=== PATIENT | female | born 1960 | race Caucasian/White ===

== ENCOUNTER 2024-12-26 13:15 | Outpatient (AMB) | payer MEDICARE, SELFPAY ==
--- NOTE | 2024-12-26 13:18 | MHC.PC.OV ---
Vital Signs 12/26/24 13:26 12/26/24 13:54 Height 4 ft 11 in Weight 173 lb 4 oz BMI 35.0 BP 194/95 H 195/100 H Blood Pressure Location Rt brachial Lt brachial Position Sitting Sitting Respiration 16 Pulse 62 Pulse Source Pulse Oximeter Temp 97.8 F Temp Source Oral Pulse Oximetry (%) 97 Oxygen Delivery Method Room Air Intake Visit Reasons: Requesting PE/ Intake Note: patient here for new patient visit Sandfill Operator Required: No Is last menstrual period known: No Post menopausal: No Patient : No Allergies No Known Allergies Allergy (Verified 12/26/24 13:47) Medication List - Last Reconciled 12/26/24 by Millie Sarabia CNP albuterol sulfate 90 mcg/actuation 2 puffs inhalation Q4H PRN carvedilol 6.25 mg PO BID clopidogrel 75 mg PO DAILY losartan 25 mg PO BID rosuvastatin 5 mg PO DAILY Tobacco use date assessed: 12/26/24 Fall risk assessment: No Falls in past year Last assessed Fall Risk: 12/26/24 Dental Screening Dental Screen Date: 12/26/24 Did you have a dental visit in the last 12 months?: No Did you have a dental problem in the last 6 months where you did not have access to dental care?: No Was dental information given to patient?: Patient declined (she has dentures) HPI HPI Comments History of Present Illness Details 64-year-old female presents to establish care. Prior PCP? - [facility] Last office visit/CPE/labs - A year ago Acute issue(s) - Hypertension: Her resting BP is currently 195/100. She notes elevated BP readings at doctor's visits. She checks her blood pressure daily with average readings between 132/80 She is on carvedilol 6.25 mg twice daily and losartan 25 mg twice daily. She is followed by cardiology yearly. 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 - CAD: She is on rosuvastatin 5 mg daily. - COPD: She is on albuterol inhaler as needed. Past Medical History - Hypertension, CAD, aortic aneyrysm, COPD, cataract right eye, murmur, shingles Surgical History - Coronary artery stent, section Family History - Dad: Hypertension, cardiovascular disease, alcohol abuse, substance abuse, - Mom: Hypertension Social History - Former smoker, quit 7 years ago, h/o 1 and half ppd, smoked x 45 years . Does not vape. Does not drink. Smokes cannabis occasionally - Has been making healthy dietary choices in the last couple of weeks. She recently started walking and doing cardio regularly. Generally sleep well Health maintenance - Last eye exam was in 06/2024. She will sign a release for her PCP to ophthalmology record - Last dental visit was in 07/2024 - Last tetanus vaccine was 7 years ago. Record not available - Has not been vaccinated for the flu this season; declines vaccination - She is up-to-date on the pneumonia vaccines. Record not available - She had shingles 10 years and elected to not getting the vaccine - Last pap smear test was 43 years ago: Normal. She no longer performs pap smear test - Last mammogram was with [facility] a year ago: Normal; he will schedule a mammogram with them - She has never had a colonoscopy. She had Cologuard 4 years ago that was normal. Cologuard test ordered - She has never had a bone density scan. Dexa scan ordered - She had never had LDCT Specialists Nilda Jones and [facility] Medical History (Updated 12/26/24 @ 14:42 by Millie Sarabia CNP) Shingles Arthritis High blood pressure COPD (chronic obstructive pulmonary disease) Surgical History History of heart artery stent H/O: Family History Father Alcohol abuse Substance abuse High blood pressure Cardiovascular disease Mother High blood pressure Brother High blood pressure High cholesterol Cardiovascular disease Sister High blood pressure High cholesterol Diabetes Social History Housing: House Patient Tobacco Use Status: Never used Tobacco e-Cigarette/Vaping Use: Never Used Second Hand Smoke Exposure: No Substance Use Type: Marijuana service: No Current occupational status: retired Current occupational exposures/hazards: No Cognitive needs: No Hearing needs: No Vision needs: Yes Questionnaire PHQ-9 Over the last 2 weeks, how often have you been bothered by any of the following problems? 1. Little interest or pleasure in doing things: not at all 2. Feeling down, depressed, or hopeless: not at all 3. Trouble falling or staying asleep, or sleeping too much: not at all 4. Feeling tired or having little energy: not at all 5. Poor appetite or overeating: several days 6. Feeling bad about yourself - or that you are a failure or have let yourself or your family down: not at all 7. Trouble concentrating on things, such as reading the newspaper or watching television: not at all 8. Moving or speaking so slowly that other people could have noticed. Or the opposite - being so fidgety or restless that you have been moving around a lot more than usual: not at all 9. Thoughts that you would be better off or of hurting yourself in some way: not at all Total score: 1 Depression Screening Interpretation: Negative Depression Screening Done: Yes 52297 - PHQ-9 Billing: Yes Source: Developed by Drs. Rene Narayanan, Emily Herbert, John Adorno and colleagues, with an educational stephanie from [employer] Thrive Questionnaire Date Thrive assessed: 12/26/24 I am a: Patient What is your living situation today?: I have a steady place to live Within the past 12 months, did the food you bought not last and you didn't have the money to get more?: Never true Within the past 12 months, did you worry whether your food would run out before you got money to buy more?: Never true Do you have trouble paying for medicines?: No Do you have trouble getting transportation to medical appointments?: No Do you have trouble paying your heating and electricity bill?: No Do you have trouble taking care of your child, family member or friend?: No Do you have trouble with day-to-day activities such as bathing, preparing meals, shopping, managing finances, etc.?: No Are you currently unemployed and looking for a job?: No Are you interested in more education?: No Please select the resources that you would like help with: None Currently or been in a relationship where the following occur: No concerns reported THRIVE Score: 0 AUDIT C Alcohol Use Questionnaire (AUDIT-C) 1. How often do you have a drink containing alcohol?: Never Total Score: 0 HECTOR-7 AMB Questionnaire HECTOR-7 Date HECTOR - 7 assessed: 12/26/24 Feeling nervous, anxious, or on edge: 0 = Not at all Not being able to stop or control worryin = Not at all Worrying too much about different things: 0 = Not at all Trouble relaxin = Not at all Being so restless that it is hard to sit still: 0 = Not at all Becoming easily annoyed or irritable: 0 = Not at all Feeling afraid as if something awful might happen: 0 = Not at all Total HECTOR-7 score (0-4 normal; 5-9 mild; 10-14 moderate; 15-21 severe): 0 Source: Developed by Drs. Rene Narayanan, Emily Herbert, John Adorno and colleagues, with an educational stephanie from [employer] HECTOR-7 Assessment Billing HECTOR-7 Assessment Tool: HECTOR-7 Assessment 48685 Review of Systems Const Details: Denies chills, Denies fatigue, Denies fever(s), Denies headache(s) and Denies weakness HEENT Denies change in vision, Denies dizziness, Denies headache(s), Denies hearing loss, Denies nasal congestion, Denies sinus pain, Denies sinus pressure and Denies sore throat Card Denies chest pain, Denies lightheadedness, Denies dyspnea and Denies other (palpitations) Resp Denies cough, Denies dyspnea and Denies wheezing GI Denies abdominal pain, Denies melena, Denies hematochezia, Denies change in bowel habits, Denies dyspepsia and Denies nausea Denies hematuria and Denies dysuria Musc Denies abnormal gait, Denies myalgias, Denies arthralgias, Denies numbness and Denies tingling Skin/Breast Denies rash, Denies unusual bruising and Denies wounds Neuro Denies abnormal gait, Denies dizziness, Denies headache(s), Denies memory loss, Denies numbness, Denies Sensory deficit (Neuro), Denies tingling and Denies weakness Psych Denies anxiety, Denies depression and Denies memory loss Endo Denies cold intolerance, Denies fatigue, Denies heat intolerance, Denies polydipsia and Denies polyuria George/Lymph Denies easy bleeding and Denies easy bruising Aller/Immun Denies wheezing Physical exam (Primary Care) Vital Signs: Last Vital Signs Temp 97.8 F 12/26/24 13:26 Pulse 62 12/26/24 13:26 Resp 16 12/26/24 13:26 BP 194/95 H 12/26/24 13:26 Pulse Ox 97 12/26/24 13:26 Oxygen Delivery Method Room Air 12/26/24 13:26 BMI result Body Mass Index 35.0 Tobacco/Smoking Status: Tobacco use Status Tobacco use date assessed 12/26/24 12/26/24 13:39 Patient Tobacco Use Status Never used Tobacco 12/26/24 13:39 e-Cigarette/Vaping Use Never Used 12/26/24 13:39 PHQ-9: PHQ-9 Score PHQ-9: Total score 1 12/26/24 13:39 Depression Screening Interpretation: Negative Thrive Assessment: Date of Thrive Assessment Date Thrive assessed 12/26/24 12/26/24 13:21 Currently or been in a relationship where the following occur: No concerns reported Const Other: General: no acute distress, well developed, alert and awake Nutritional Appearance: well nourished Orientation/consciousness: patient oriented x3 HENMT Head: Yes normocephalic and Yes atraumatic Ears: hearing grossly normal bilaterally and TM's normal bilaterally General nose exam: Normal external nose present and Normal nares present Mouth: Normal oral and palatal mucosa present and moist mucous membranes Teeth and gingiva: Full denture, normal oral cavity Throat: Yes oropharynx normal Eyes Pupils: Equal, round and reactive pupils present and Pupil accommodation reflex normal EOM: EOMs intact bilaterally Neck Neck: Yes normal visual inspection, Yes no lymphadenopathy and Yes trachea midline Thyroid: Thyroid normal Carotids: no bruits Lymphatic: no lymphadenopathy noted Chest Chest palpation & inspection: normal inspection of the chest Resp Effort & Inspection: normal respiratory effort Auscultation: clear to auscultation bilaterally Cardio Rate: regular rate Rhythm: regular rhythm Heart sounds: S1 normal heart sound present, S2 normal heart sound present, no gallops, no murmurs and no rubs Bruits: no abdominal aortic bruits and no carotid bruits GI Palpation (GI): No Abdominal aortic bruit present, Soft to palpation, nontender, No hepatosplenomegaly present and No Rebound tenderness present Auscultation: normal bowel sounds General: Yes no CVA tenderness Back/Spine/Pelvis Back: no CVA tenderness Cervical Spine: cervical ROM normal and No Cervical spine tenderness Thoracic/Lumbar Spine: thoraco-lumbar ROM normal, No pain with thoraco-lumbar ROM, No thoracic spinal tenderness and No lumbar spinal tenderness Skin General: warm and dry. Normal skin color. Normal skin turgor Lesions: no lesions Rashes: no rashes Trauma: no lacerations or abrasions Wounds: no wounds Nails: normal Neuro General: patient oriented x3, gait normal and CN's II-XI intact bilaterally Cranial nerves: Yes Equal, round and reactive pupils present Cognition (Neuro): normal cognition Gait exam (Neuro): Normal gait present Motor exam (neuro): 5/5 motor strength present throughout Sensory Exam: No Sensory deficit (Neuro) Deep tendon reflexes (DTR's): Right patellar reflex intensity grade: 2+ and Left patellar reflex intensity grade: 2+ Extrem General: Yes normal to inspection, No edema and No calf tenderness Psych Appearance: grossly normal Affect: normal affect Attitude: cooperative Thought process: Normal thought process present Coding Level of Care Code New Pt Level 3 (90659) New Pt Prev Care >65yr (96898) Diagnoses Normal physical examination, routine Z00.00 High blood pressure I10 CAD (coronary artery disease) I25.10 Abdominal aortic aneurysm I71.40 Obesity (BMI 30-39.9) E66.9 COPD (chronic obstructive pulmonary disease) J44.9 History of smoking Z87.891 Osteoporosis screening Z13.820 Colon cancer screening Z12.11 Laboratory tests ordered as part of a complete physical exam (CPE) Z00.00 Additional Codes HECTOR-7 Assessment Billing - HECTOR-7 Assessment Tool: HECTOR-7 Assessment 50638 ([id number]) PHQ-9 - 51599 - PHQ-9 Billing: Yes ([id number]) Assessment & Plan Assessment & Plan (1) Normal physical examination, routine: Code(s): Z00.00 - Encounter for general adult medical examination without abnormal findings Category: Medical Plan: No significant functional limitation noted. Continue current treatment regimen. Perform lab work and follow-up for telehealth visit in 2-3 weeks. Return sooner with symptoms or concerns. Verbalized understanding and agreed with treatment plan. (2) High blood pressure: Code(s): I10 - Essential (primary) hypertension Category: Medical Plan: Resting blood pressure is 195/100, above goal of less than 130/80. Declines medication changes at this time to control her blood pressure and notes that her blood pressure is usually elevated at doctor's visits and controlled at home. She monitors her blood pressure daily and averages 132/80. She would continue to take her medications as prescribed and follow-up with cardiology for blood pressure management. Routine exercise and low-sodium diet encouraged. Follow-up as needed. Verbalized understanding and agreed with the plan. (3) CAD (coronary artery disease): Code(s): I25.10 - Atherosclerotic heart disease of [place] coronary artery without angina pectoris Category: Medical Plan: Continue current treatment regimen. Followed by cardiology. (4) Abdominal aortic aneurysm: Code(s): I71.40 - Abdominal aortic aneurysm, without rupture, unspecified Category: Medical Plan: Followed by cardiology. (5) Obesity (BMI 30-39.9): Code(s): E66.9 - Obesity, unspecified Category: Medical Plan: She currently weighs 170 lb, BMI is 35.0. She recently started making healthy dietary choices and exercising routinely. Declines referral to hot saw helper/dietitian or weight management clinic and notes she will continue to make lifestyle changes. Healthy diet and routine exercise encouraged. Follow-up as needed. Verbalized understanding and agreed with the plan. (6) COPD (chronic obstructive pulmonary disease): Code(s): J44.9 - Chronic obstructive pulmonary disease, unspecified Category: Medical Plan: Albuterol as prescribed. (7) History of smoking: Code(s): Z87.891 - Personal history of nicotine dependence Category: Social Hx Plan: She is a former smoker who quit 7 years ago. She has history of smoking a pack and a half daily and smoked for 45 years. She has never had LDCT. Referred to [facility] pulmonology for follow-up. (8) Osteoporosis screening: Code(s): Z13.820 - Encounter for screening for osteoporosis Category: Medical Plan: She has never had a bone scan for osteoporosis screening. DEXA scan ordered. (9) Colon cancer screening: Code(s): Z12.11 - Encounter for screening for malignant neoplasm of colon Category: Medical Plan: She has never had a colonoscopy. She had Cologuard 4 years ago that was normal. Cologuard test ordered. (10) Laboratory tests ordered as part of a complete physical exam (CPE): Code(s): Z00.00 - Encounter for general adult medical examination without abnormal findings Category: Medical Plan: Fasting labs ordered as part of a complete physical exam. Advised to fast for at least 10 hours before getting labs drawn. May drink water Verbalized understanding and agreed with treatment plan. Orders: Orders Complete Blood Count Auto Diff Today Z00.00 - Encounter for general adult medical examination without abnormal findings Lipid Panel Today Z00.00 - Encounter for general adult medical examination without abnormal findings TSH reflex Free T4 Today Z00.00 - Encounter for general adult medical examination without abnormal findings Vitamin D 25-OH Total Today Z00.00 - Encounter for general adult medical examination without abnormal findings XR DEXA axial skeleton Today M81.0 - Age-related osteoporosis without current pathological fracture Comprehensive [place]. Panel Fast Today Z00.00 - Encounter for general adult medical examination without abnormal findings Microalbumin, Random (w Creat) Today Z00.00 - Encounter for general adult medical examination without abnormal findings UA CC w/rflx Micro + Cult Today Z00.00 - Encounter for general adult medical examination without abnormal findings Referrals Lung Cancer Screening Referral Z87.891 - Personal history of nicotine dependence Cologuard Test Z12.11 - Encounter for screening for malignant neoplasm of colon, Z12.12 - Encounter for screening for malignant neoplasm of rectum
[2024-12-26 13:26] VITALS: BP 194/95; PULSE 62; RESP 16; TEMP 36.6; O2SAT 97; BMI 35.0
[2024-12-26 13:54] VITALS: BP 195/100
--- OUTSIDE RECORDS SUMMARY | 2024-12-26 16:11 | XMS_ITS | Encounter Summary ---
Author Organization [employer] Address [address] [place] [address] Care Team Providers Care Hat Copyist Name Role Phone Little Reid DO Primary Care Provider [phone] Encounter Details Date Type Department Care Team (Late st Contact Info) Description 08/20/2023 Orders Only [facility] [address] [place] [address] Little Reid DO [address] [place] [address] Social History Tobacco Use Types Packs/Day Years Used Date Smoking Tobacco: Former Cigarettes Alcohol Use Standard Drinks/Week Comments Never 0 (1 standard drink = 0.6 oz pur e alcohol) Housing Stability Answer Date Recorded What is your housing situation today? I have mary randle 07/30/[address] you li ve. Do you have problems with any of the following? None of the above 07/30/2023 Food Insecurity Answer Date Recorded Within the past 12 months, y ou worried that your food would run out before you got money to buy more: Never True 07/30/2023 Within the past 12 months,th e food you bought just didn't last and you didn't have enough money to get more: Never True Transportation Answer Date Recorded In the past 12 months, has l ack of transportation kept you from medical appts, meetings, work or from getting things needed for daily living? No 07/30/2023 Utilities Answer Date Recorded In the past 12 months, has t he electric, gas, oil or water company threatened to shut off services in your home? No 07/30/2023 Depression Answer Date Recorded Patient Health Questionnaire-2 Score 0 07/30/2023 Sex and Gender Information Value Date Recorded Sex Assigned at Male 09/03/2022 1:51 PM EST Legal Sex Female 8:38 PM EDT Gender Identity Male 09/03/2022 1:51 PM EST Sexual Orientation Choose not to disclose 2022 11:51 AM EST documented as of this encounter Plan of Treatment Not on file documented as of this encounter Procedures Procedure Name Priority Date/Time Associated Diagnosis Comments TRANSTHORACIC ECHO (TTE) COMPLETE Routine 04/16/2023 documented in this encounter Results * Transthoracic echo (TTE) complete (04/16/2023) Little Reid DO CV ECHO PROCEDURES Edited Resu lt - Final documented in this encounter Visit Diagnoses Not on filedocumented in this encounter Care Teams Hat Copyist Relationship Specialty Start Date End Date Little Reid DO [address] [place] [id number] PCP - General Family Medicine 07/29/23 documented as of this encounter
--- OUTSIDE RECORDS SUMMARY | 2024-12-26 16:11 | XMS_ITS | Clinical Summary ---
Author Organization [employer] Address [address] [facility] 7[address] [place] [address] Care Team Providers Care Manager Medicaid Name Role Phone Little Reid DO Primary Care Provider [phone] Allergies No known active allergies Medications Multiple Vitamins-Minerals (Multi For Her) tablet Orally Active losartan (Cozaar) 25 MG tablet Take 25 mg by mouth in the morning. 07/04/2022 Active aspirin 81 MG EC tablet Take 81 mg by mouth. 09/28/2017 Active clopidogrel (Plavix) 75 MG tablet Take 75 mg by mouth. 09/28/2017 Active rosuvastatin (Crestor) 5 MG tablet Take 5 mg by mouth. 08/05/2021 Active milk thistle 175 MG tablet Take 175 mg by mouth in the morning. Active carvedilol (Coreg) 6.25 MG tabletIndications :Primary hypertension TAKE 1 TABLET BY MOUTH TWICE DAILY 180 tablet 2 11/30/2023 Active albuterol 108 (90 Base) MCG/ACT inhalerIndication s:Chronic obstructive pulmonary disease, unspecified COPD type (CMS/HCC) INHALE 2 PUFFS INTO THE LUNGS EVERY 4 HOURS NEEDED 42.5 g 07/25/2024 Active Active Problems Problem Noted Date Diagnosed Date Heart aneurysm 09/01/2022 Prediabetes 09/01/2022 Overview (07/30/2023): Stable with Obesity (BMI 30.0-34.9) 09/01/2022 White coat syndrome with diagnosis of hypertensi on 09/01/2022 Assessment & Plan (07/30/2023 5:06 PM EST): Home BP well controlled. Continue current regimen History of myocardial infarction 09/01/2022 Assessment & Plan (07/30/2023 5:05 PM EST): H/o ME x 2 at 47 yo and 57 yo with three stents On ASA, Plavix, statin, BB, ARB Follows with Dr. Lopez at [facility] History of coronary artery stent placement 09/01 Chronic obstructive pulmonary disease 09/01/2022 Assessment & Plan (07/30/2023 5:07 PM EST): Gold category A with mild, stable symptoms and good functional capacity. Continue albuterol prn Carpal tunnel syndrome of left wrist 09/01/2022 Resolved Problems Problem Noted Date Diagnosed Date Resolved Date ST elevation myocardial infa rction involving left anterior descending (LAD) coronary artery 09/01/2022 07/30/2023 Immunizations Name Administration Dates Next Due INFLUENZA INJECTABLE QUADRIV ALANT CCIIV4 MDCK Multi-dose vial 08/21/2019 Influenza, IIV3, injectable 07/29/2021, 0 Moderna Covid-19 Vaccine 12+ 03/19/2022, 08/22/2021,12/19/2020,2020 Social History Tobacco Use Types Packs/Day Years Used Date Smoking Tobacco: Former Cigarettes Passive Smoke Exposure: Past Smokeless Tobacco: Never Tobacco Cessation:Counseling Given: Not Answered Alcohol Use Standard Drinks/Week Comments Never 0 (1 standard drink = 0.6 oz pur e alcohol) Alcohol Answer Date Recorded How often do you have a drink containing alcohol ? 0 12/13/2023 How many drinks containing a lcohol do you have on a typical day when you are drinking? 0 12/13/2023 How often do you have six or more drinks on one occasion? 0 12/13/2023 Housing Stability Answer Date Recorded What is [...] things needed for daily living? No 07/30/2023 Intimate Partner Violence Answer Date R ecorded Within the last year, have y ou been afraid of your partner or ex-partner? 2 12/13/2023 Within the last year, have y ou been humiliated or emotionally abused in other ways by your partner or ex-partner? 2 Within the last year, have y ou been kicked, hit, slapped, or otherwise physically hurt by your partner or ex-partner? 2 12/13/2023 Within the last year, have y ou been raped or forced to have any kind of sexual activity by your partner or ex-partner? 2 12/13/2023 Utilities Answer Date Recorded In the past 12 months, has t he [employer], gas, oil or water company threatened to shut off services in your home? No 07/30/2023 Depression Answer Date Recorded Patient Health Questionnaire-2 Score 0 07/30/2023 Sex and Gender Information Value Date Recorded Sex Assigned at Male 09/03/2022 1:51 PM EST Legal Sex Female 8:38 PM EDT Gender Identity Male 09/03/2022 1:51 PM EST Sexual Orientation Choose not to disclose 2022 11:51 AM EST Occupation Industry Job Start Date Job End Date [employer] [place] Not on file Not on sayra e Not on file Last Filed Vital Signs Vital Sign Reading Time Taken Comments Blood Pressure 156/88 12/13/2023 3:19 PM EDT Pulse 60 12/13/2023 3:19 PM EDT Temperature 36.4 ??C (97.6 ??F) 12/13/2023 3:19 PM ED T Respiratory Rate - - Oxygen Saturation 96% 12/13/2023 3:19 PM EDT Inhaled Oxygen Concentration - - Weight 75.4 kg (166 lb 3.2 oz) 12/13/2023 3:19 P M EDT Height 152.4 cm (5') 12/13/2023 3:19 PM EDT Body Mass Index 32.46 12/13/2023 3:19 PM EDT Plan of Treatment Health Maintenance Due Date Last Done Comments CT Colonography 1959 Colonoscopy 1959 Colorectal Cancer Screening 1959 FIT DNA/Cologuard 1959 FIT 1959 FOBT 1959 Sigmoidoscopy 1959 Alcohol/Substance Use Screening 1971 Hepatitis C Screening 1977 DTaP/Tdap/Td Vaccines (1 - Tdap) 1978 Pneumococcal Vaccine: 50+ Years (1 of 2 - PCV) 1978 Zoster Vaccines (1 of 2) 2009 Diabetes: Hemoglobin A1C 08/22/2019 08/22/2018 RSV Patients and Patients Aged 60 years or older (1 - Risk 60-74 years 1-dose series) 2019 Lipid Panel 03/26/2021 03/26/2016 COVID-19 Vaccine ( season) 2024 03/19/2022, 08/22/2021, 12/19/2020, Additional history exists Influenza Vaccine (#1) 2024 , 06/27/2020, 08/21/2019 Depression Screening 07/30/2024 07/30/2023, 07/30/20 23 SDOH Screening 07/30/2024 07/30/2023 Tobacco Screening 12/12/2024 12/13/2023 HIB Vaccines Aged Out No longer eligi ble based on patient's age to complete this topic HPV Vaccines Aged Out No longer eligi ble based on patient's age to complete this topic Hepatitis A Vaccines Aged Out No long er eligible based on patient's age to complete this topic Hepatitis B Vaccines Aged Out No long er eligible based on patient's age to complete this topic IPV Vaccines Aged Out No longer eligi ble based on patient's age to complete this topic Meningococcal Vaccine Aged Out No lorraine kacey eligible based on patient's age to complete this topic RSV under 20 months Aged Out No longe r eligible based on patient's age to complete this topic Rotavirus Vaccines Aged Out No longer eligible based on patient's age to complete this topic Procedures Procedure Name Priority Date/Time Associated Diagnosis Comments HEMOGLOBIN A1C Routine 08/22/2018 LIPID PANEL, STANDARD Routine 03/26/2016 from Last 3 Months or Most Recently Relevant to Health Maintenance Results * Hemoglobin A1c (08/22/2018) Hemoglobin A1C 5.8 4.0 - 6.0 % Blood Venous blood specimen / Unknown [facility] Provider LAB BLOOD ORDERABLES Lola l Result * (ABNORMAL) Lipid Panel, Standard (03/26/2016) Triglycerides 201(A) 40 - 160 mg/dL Cholesterol 168 0 - 200 mg/dL HDL Cholesterol 37 35 - 70 mg/dL LDL Cholesterol 75 mg/dL Blood Venous blood specimen / Unknown [facility] Provider LAB BLOOD ORDERABLES Lola l Result from Last 3 Months or Most Recently Relevant to Health Maintenance Insurance [facility] * Guarantor: Winifred Watkins Account Type Relation to Patient Date of Phone Billing Address Personal/Family Self [facility] * Guarantor: Winifred Watkins Account Type Relation to Patient Date of Phone Billing Address Personal/Family Self [facility] * Guarantor: Winifred Watkins Account Type Relation to Patient Date of Phone Billing Address Personal/Family Self [facility] Care Teams Manager Medicaid Relationship Specialty Start Date End Date Little Reid DO [address] [place] [address] PCP - General Family Medicine 07/29/23
--- OUTSIDE RECORDS SUMMARY | 2024-12-26 16:11 | XMS_ITS | Encounter Summary ---
Author Organization [employer] Address [address] [facility] [facility] [address] [place] [address] Care Team Providers Care Human Resources Supervisor Name Role Phone Little Reid Primary Care Provider [phone] Encounter Details Date Type Department Care Team (Late st Contact Info) Description 08/04/2023 Orders Only [place] [facility] [address] [place] [address] Provider, MD Sanjay Social History Tobacco Use Types Packs/Day Years Used Date Smoking Tobacco: Former Cigarettes Alcohol Use Standard Drinks/Week Comments Never 0 (1 standard drink = 0.6 oz pur e alcohol) Housing Stability Answer Date Recorded What is your housing situation today? I have m[place] randle 07/30/[address] you [...] Procedure Name Priority Date/Time Associated Diagnosis Comments MAMMOGRAPHY Routine 04/30/2023 documented in this encounter Results * Hm Mammography (04/30/2023) Anatomical Region Laterality Modality Other Historical Provider HEALTH MAINTENANCE Final Result documented in this encounter Visit Diagnoses Not on filedocumented in this encounter Care Teams Human Resources Supervisor Relationship Specialty Start Date End Date Little Reid DO [address] [place] [id number] PCP - General Family Medicine 07/29/23 documented as of this encounter
--- OUTSIDE RECORDS SUMMARY | 2024-12-26 16:11 | XMS_ITS | Encounter Summary ---
Author Organization [employer] Address [address] [facility] [address] [place] [address] Care Team Providers Care Grinder Set Up Operator Universal Name Role Phone Little Reid DO Primary Care Provider [phone] Encounter Details Date Type Department Care Team (Late st Contact Info) Description 12/31/2023 Orders Only [place] [facility] [address] [place] [address] Little Reid DO [address] [place] [address] Social History Tobacco Use Types Packs/Day Years Used Date Smoking Tobacco: Former Cigarettes Passive Smoke Exposure: Past Smokeless Tobacco: Never Alcohol Use Standard Drinks/Week Comments Never 0 [...] Industry Job Start Date Job End Date [facility] [employer] Not on file Not on sayra e Not on file documented as of this encounter Plan of Treatment Not on file documented as of this encounter Procedures Procedure Name Priority Date/Time Associated Diagnosis Comments DERMATOPATHOLOGY REPORT Routine 12/13/2023 3:54 PM EDT documented in this encounter Results * Dermatopathology Report (12/13/2023 3:54 PM EDT) Little Reid DO LAB BLOOD ORDERABLES Final Res ult documented in this encounter Visit Diagnoses Not on filedocumented in this encounter Care Teams Grinder Set Up Operator Universal Relationship Specialty Start Date End Date Little Reid DO [address] [place] [phone] PCP - General Family Medicine 07/29/23 documented as of this encounter
== END 2024-12-26 14:25 | disposition home or self-care (01) ==
LOC: HO.HMCFM 13:15
PROVIDERS: PCP Nurse Practitioner Family; Visit Provider Nurse Practitioner Family
DX: Z00.00 Encounter for general adult medical examination without abnormal findings (principal); I10 Essential (primary) hypertension; I71.40 Abdominal aortic aneurysm, without rupture, unspecified; J44.9 Chronic obstructive pulmonary disease, unspecified; I25.10 Atherosclerotic heart disease of native coronary artery without angina pectoris; E66.9 Obesity, unspecified; Z87.891 Personal history of nicotine dependence; Z13.820 Encounter for screening for osteoporosis; Z12.11 Encounter for screening for malignant neoplasm of colon

== ENCOUNTER → 2024-12-26 13:15 | Outpatient (BNVA) | payer MEDICARE, SELFPAY | PROVIDERS: PCP Nurse Practitioner Family; Visit Provider Nurse Practitioner Family | DX: Z00.00 Encounter for general adult medical examination without abnormal findings (principal); I10 Essential (primary) hypertension; I25.10 Atherosclerotic heart disease of native coronary artery without angina pectoris; J44.9 Chronic obstructive pulmonary disease, unspecified; I71.40 Abdominal aortic aneurysm, without rupture, unspecified; E66.9 Obesity, unspecified; Z87.891 Personal history of nicotine dependence; Z79.899 Other long term (current) drug therapy | CPT/HCPCS: 96127; 99202; 99387 ==

== ENCOUNTER 2025-01-08 10:33 | Outpatient (REF) | payer MEDICARE, SELFPAY ==
--- OUTSIDE RECORDS SUMMARY | 2025-01-08 12:26 | XMS_ITS | Encounter Summary ---
Author Organization [email or web address] Address [address] [facility] 7t [place] [address] Care Team Providers Care Program Director/Air Personality Name Role Phone Little Reid DO Primary Care Provider [phone] Encounter Details Date Type Department Care Team (Late st Contact Info) Description 08/20/2023 Orders Only [place] [facility] [address] [place] [address] Little Reid DO [address] [place] [address] Social History Tobacco Use Types Packs/Day Years [...] on filedocumented in this encounter Care Teams Program Director/Air Personality Relationship Specialty Start Date End Date Little Reid DO [address] [place] [id number] PCP - General Family Medicine 07/29/23 documented as of this encounter
--- OUTSIDE RECORDS SUMMARY | 2025-01-08 12:26 | XMS_ITS | Encounter Summary ---
Author Organization [employer] Address [address] [facility] [address] [place] [address] Care Team Providers Care Order Administrator Name Role Phone Little Reid Primary Care Provider [phone] Encounter Details Date Type Department Care Team (Late st Contact Info) Description 08/04/2023 Orders Only [place] [facility] [address] [place] [address] Provider, MD Sanjay Social History Tobacco Use [...] on filedocumented in this encounter Care Teams Order Administrator Relationship Specialty Start Date End Date Little Reid DO [address] [place] [id number] PCP - General Family Medicine 07/29/23 documented as of this encounter
--- OUTSIDE RECORDS SUMMARY | 2025-01-08 12:26 | XMS_ITS | Clinical Summary ---
Author Organization [employer] Address [address] [facility] [address]t [place] [address] Care Team Providers Care Orthopedically Impaired Teacher Name Role Phone Little Reid DO Primary Care Provider [phone] Allergies No known active allergies Medications Multiple [...] BB, ARB Follows with Dr. Lopez at [facility] History of coronary [...] the past 12 months, has t he [employer], gas, oil or water company threatened to [...] Industry Job Start Date Job End Date [facility] [employer] [place] Not on file Not on sayra e [...] % Blood Venous blood specimen / Unknown [facility] Provider LAB BLOOD ORDERABLES Lola l Result * (ABNORMAL) Lipid Panel, Standard (03/26/2016) Triglycerides 201(A) 40 - 160 mg/dL Cholesterol 168 0 - 200 mg/dL HDL Cholesterol 37 35 - 70 mg/dL LDL Cholesterol 75 mg/dL Blood Venous blood specimen / Unknown [facility] Provider LAB BLOOD ORDERABLES Lola l Result from Last 3 Months or Most Recently Relevant to Health Maintenance Insurance [facility] PPO * Guarantor: Winifred Watkins Account Type Relation to Patient Date of Phone Billing Address Personal/Family Self [facility] * Guarantor: Winifred Watkins Account Type Relation to Patient Date of Phone Billing Address Personal/Family Self [facility] * Guarantor: Winifred Watkins Account Type Relation to Patient Date of Phone Billing Address Personal/Family Self [facility] Care Teams Orthopedically Impaired Teacher Relationship Specialty Start Date End Date Little Reid DO [address] [place] [address] PCP - General Family Medicine 07/29/23
--- OUTSIDE RECORDS SUMMARY | 2025-01-08 12:26 | XMS_ITS | Encounter Summary ---
Author Organization [employer] Address [address] [facility] [address] 7[address] [place] [address] Care Team Providers Care Cable Coverer Name Role Phone Little Reid DO Primary Care Provider [phone] Encounter Details Date Type Department Care Team (Late st Contact Info) Description 12/31/2023 Orders Only [place] [facility] [address] [place] [address] Little Reid DO [address] [place] [address] Social History Tobacco Use Types Packs/Day Years [...] Industry Job Start Date Job End Date [facility] [employer] Not on file Not on sayra e [...] on filedocumented in this encounter Care Teams Cable Coverer Relationship Specialty Start Date End Date Little Reid DO [address] [place] [id number] PCP - General Family Medicine 07/29/23 documented as of this encounter
[2025-01-08 14:07] LABS: MANUAL DIFF FLAG NO
[2025-01-08 14:12] LABS: Basophils Percent Auto 0.5 % (0-2); Eosinophils Absolute Auto 0.1 X10*3/uL (0.0-0.4); Eosinophils Percent Auto 1.3 % (0-4); Hemoglobin 14.2 g/dl (12.0-16.0); Imm Gran Abs Auto 0.03 X10*3/uL (0.00-0.03); Imm Gran Pct Auto 0.4 % (0.0-0.4); Lymphocytes Absolute Auto 1.5 X10*3/uL (1.2-4.9); Lymphocytes Percent Auto 20.2 % (20-40); Mean Corpuscular Hemoglobin 26.7 pg (27.0-33.0); Mean Corpuscular Volume 80.8 fL (80.0-98.0); Mean Platelet Volume 10.8 fL (9.4-12.3); Monocytes Absolute Auto 0.5 X10*3/uL (0.1-1.2); Neutrophils Absolute Auto 5.3 x10*3/uL (2.0-8.3); Neutrophils Percent Auto 70.6 % (45-73); Platelet Count 257 X10*3/uL (160-400); Red Blood Count 5.32 X10*6/uL (4.20-5.50); Red Cell Distribution Width 14.9 % (11.0-16.0); White Blood Count 7.5 X10*3/uL (4.8-10.8)
[2025-01-08 14:26] LABS: Appearance Urine Clear; Color Urine Yellow; Glucose Urine UA Negative (Negative); Leukocyte Esterase Urine Moderate (2+) (Negative); Nitrite Urine Negative (Negative); PH 5.5 (5.0-9.0); UMIC TRIGGER UACC YES; Urine Blood Negative (Negative); Urine Ketones Trace mg/dL (Negative); Urine Protein Trace mg/dL (Neg-Trace)
[2025-01-08 14:47] LABS: Alanine Aminotransferase 23 U/L (0-31); Albumin Level 4.2 g/dL (3.5-5.0); Alkaline Phosphatase 65 U/L (39-117); Anion Gap 13 (12-20); Aspartate Amino Transferase 30 U/L (5-31); Bilirubin Total 0.5 mg/dL (0.0-1.0); Blood Urea Nitrogen 9 mg/dL (9-16); Calcium 9.1 mg/dL (8.4-10.2); Carbon Dioxide 25 mmol/L (22-29); Chloride 108 mmol/L (96-108); Cholesterol 138 mg/dL (<200); Estimated Glomerular Filt Rate > 60; Glucose Fasting 113 mg/dL (60-99); HDL Cholesterol 48 mg/dL (>40); LDL Cholesterol Calculated 51 mg/dL (<100); Sodium 142 mmol/L (135-145); TSH reflex Free T4 0.41 uIU/mL (0.32-4.0); Total Protein 6.7 g/dL (6.5-8.0); Triglycerides 196 mg/dL (<150); Vitamin D 25-OH Total 48.7 ng/mL (>30)
[2025-01-08 14:48] LABS: Creatinine Urine 256.74 mg/dL; Microalbum/Creatinine Ratio Ur 14.4 ug/mg cr (<30)
[2025-01-08 19:16] LABS: Bacteria Urine None Seen (None Seen); RBC Urine 0-2 /HPF (0-2); UACC Culture Trigger YES; WBC Urine 21-50 /HPF (0-5)
== END 2025-01-08 10:34 | disposition home or self-care (01) ==
LOC: HO.WFDLDS 10:33
PROVIDERS: Visit Provider Nurse Practitioner Family
DX: Z00.00 Encounter for general adult medical examination without abnormal findings (principal); R82.90 Unspecified abnormal findings in urine
CPT/HCPCS: 36415; 80053; 80061; 81001; 82043; 82306; 82570; 84443; 85025; 87086

== ENCOUNTER 2025-01-12 14:07 | Outpatient (AMB) | payer MEDICARE, SELFPAY ==
--- NOTE | 2025-01-12 14:04 | MHC.PC.OV ---
Intake Visit Reasons: Telehalth 2-3 wks labs Intake Note: patient here for telehealth follow up for lab review Web User Experience Strategist Required: No Is last menstrual period known: No Post menopausal: No Patient : No Allergies No Known Allergies Allergy (Verified 01/12/25 14:04) Tobacco use date assessed: 01/12/25 Fall risk assessment: No Falls in past year Last assessed Fall Risk: 01/12/25 Dental Screening Dental Screen Date: 01/12/25 Did you have a dental visit in the last 12 months?: No Did you have a dental problem in the last 6 months where you did not have access to dental care?: No Was dental information given to patient?: No (she has dentures) HPI HPI Comments History of Present Illness Details 64-year-old female presents for a telehealth visit for review of recent lab results. She admits to taking her medications as prescribed without adverse reactions. She notes that she checks her blood pressure regularly and average between 121-124/76-78. She reports white coat syndrome at doctor's visit due to anxiety related to a bad experience with a doctor. She offers no complaints and denies acute symptoms at this time. [facility] Medical History (Updated 01/12/25 @ 14:24 by Millie Sarabia CNP) Shingles Arthritis High blood pressure COPD (chronic obstructive pulmonary disease) Surgical History History of heart artery stent H/O: Family History Father Alcohol abuse Substance abuse High blood pressure Cardiovascular disease Mother High blood pressure Brother High blood pressure High cholesterol Cardiovascular disease Sister High blood pressure High cholesterol Diabetes Social History Housing: House Patient Tobacco Use Status: Never used Tobacco e-Cigarette/Vaping Use: Never Used Second Hand Smoke Exposure: No Substance Use Type: Marijuana Patient : No service: No Current occupational status: retired Current occupational exposures/hazards: No Cognitive needs: No Hearing needs: No Vision needs: Yes Questionnaire Thrive Questionnaire Date Thrive assessed: 12/20/24 I am a: Patient What is your living situation today?: I have a steady place to live Within the past 12 months, did the food you bought not last and you didn't have the money to get more?: Never true Within the past 12 months, did you worry whether your food would run out before you got money to buy more?: Never true Do you have trouble paying for medicines?: No Do you have trouble getting transportation to medical appointments?: No Do you have trouble paying your heating and electricity bill?: No Do you have trouble taking care of your child, family member or friend?: No Do you have trouble with day-to-day activities such as bathing, preparing meals, shopping, managing finances, etc.?: No Are you currently unemployed and looking for a job?: No Are you interested in more education?: No Please select the resources that you would like help with: None Currently or been in a relationship where the following occur: No concerns reported THRIVE Score: 0 AUDIT C Alcohol Use Questionnaire (AUDIT-C) 3. How often do you have six or more drinks on one occasion?: Never Total Score: 0 HECTOR-7 AMB Questionnaire HECTOR-7 Date HECTOR - 7 assessed: 12/26/24 Source: Developed by Drs. Rene Narayanan, Emily Herbert, John Adorno and colleagues, with an educational stephanie from [employer] Review of Systems Const Details: Denies chills, Denies fatigue, Denies fever(s), Denies headache(s) and Denies weakness Cardiac Denies chest pain, Denies claudication, Denies leg edema, Denies lightheadedness, Denies palpitations, Denies dyspnea, Denies dyspnea on exertion, Denies orthopnea and Denies other (Loss of consciousness) Resp Denies cough, Denies excessive phlegm production, Denies dyspnea, Denies dyspnea on exertion, Denies snoring and Denies wheezing Physical exam (Primary Care) Tobacco/Smoking Status: Tobacco use Status Tobacco use date assessed 01/12/25 01/12/25 14:05 Patient Tobacco Use Status Never used Tobacco 01/12/25 14:05 e-Cigarette/Vaping Use Never Used 01/12/25 14:05 Thrive Assessment: Date of Thrive Assessment Date Thrive assessed 12/20/24 01/12/25 14:05 Currently or been in a relationship where the following occur: No concerns reported Const Other: Patient is alert and oriented x3. Telehealth Telehealth Telehealth Platform: Telephone Location of provider rendering services: practice address Location of patient: address on file Patient Identification confirmed using: Name, : Yes Telehealth method: voice only Patient verbally consented to treatment: Yes Patient verbally consented to billing insurance company: Yes Patient informed of any privacy concerns related to visit: Yes Coding Level of Care Code Tele Est Pt Level 3 (62383) Diagnoses Elevated fasting glucose R73.01 Hypertriglyceridemia E78.1 High blood pressure I10 Time Spent (min) 15 Assessment & Plan Assessment & Plan (1) Elevated fasting glucose: Code(s): R73.01 - Impaired fasting glucose Category: Medical Plan: Recent fasting glucose is elevated, 113. Routine exercise and healthy diet encouraged. Will recheck fasting glucose and make changes as needed. Verbalized understanding and agreed with the plan. (2) Hypertriglyceridemia: Code(s): E78.1 - Pure hyperglyceridemia Category: Medical Plan: Recent triglyceride is elevated, 196. Advised to limit foods high in saturated fat and avoid foods high in trans fat. Routine exercise encouraged. Will increase rosuvastatin to 10 mg daily; advised to take as prescribed. Fast for 10-12 hours, may drink water only, and perform lipid panel blood work 2-3 days before next visit. Follow-up for hypertriglyceridemia and hypertension in 2 months. Verbalized understanding and agreed with the plan. (3) High blood pressure: Code(s): I10 - Essential (primary) hypertension Category: Medical Plan: She notes that she checks her blood pressure regularly and average between 121-124/76-78. She reports white coat syndrome at doctor's visit due to anxiety related to a bad experience with a doctor. Recommended that she follows up soon for hypertension. However, she notes that she would wait until she follows up with her lapping machine set up operator in a month. Continue current regimen. Routine exercise and low-sodium diet encouraged. Follow-up in 2 months or sooner with symptoms or concerns. Verbalized understanding and agreed with the plan. Orders: Orders Glucose Fasting Today R73.01 - Impaired fasting glucose Lipid Panel 2 Months E78.1 - Pure hyperglyceridemia Medications: New rosuvastatin 10 mg PO DAILY 90 days 90 tabs 1RF
--- OUTSIDE RECORDS SUMMARY | 2025-01-12 14:25 | XMS_ITS | Encounter Summary ---
Author Organization [employer] Address [address] [facility] [address] [place] [address] Care Team Providers Care Career Transition Specialist Name Role Phone Little Reid Primary Care Provider [phone] Encounter Details Date Type Department Care Team (Late st Contact Info) Description 08/04/2023 Orders Only [place] [facility] [address] [place] [address] Provider, MD Sanjay Social History Tobacco Use [...] on filedocumented in this encounter Care Teams Career Transition Specialist Relationship Specialty Start Date End Date Little Reid DO [address] [place] [id number] PCP - General Family Medicine 07/29/23 documented as of this encounter
--- OUTSIDE RECORDS SUMMARY | 2025-01-12 14:25 | XMS_ITS | Encounter Summary ---
Author Organization [employer] Address [address] [facility] 7t [place] [address] Care Team Providers Care Crown Perforator Operator Name Role Phone Little Reid DO Primary Care Provider [phone] Encounter Details Date Type Department Care Team (Late st Contact Info) Description 08/20/2023 Orders Only [place] [facility] [address] [place] [address] Little Reid DO [address] [place] [address] Social History Tobacco Use Types Packs/Day Years [...] on filedocumented in this encounter Care Teams Crown Perforator Operator Relationship Specialty Start Date End Date Little Reid DO [address] [place] [id number] PCP - General Family Medicine 07/29/23 documented as of this encounter
--- OUTSIDE RECORDS SUMMARY | 2025-01-12 14:25 | XMS_ITS | Clinical Summary ---
Author Organization [employer] Address [address] [facility] [address] [place] [address] Care Team Providers Care Centrifugal Machine Tender Name Role Phone Little Reid DO Primary Care Provider [phone] Allergies No known active allergies Medications Multiple [...] & Plan (07/30/2023 5:05 PM EST): H/o [place] x 2 at 47 yo and 57 yo with three stents On ASA, Plavix, statin, BB, ARB Follows with Dr. Lopez at [facility] History of coronary artery stent [...] the past 12 months, has t he [employer], gas, oil or water company threatened [...] Industry Job Start Date Job End Date [facility] [place] Not on file Not on sayra e [...] % Blood Venous blood specimen / Unknown [facility] Provider LAB BLOOD ORDERABLES Lola l Result * (ABNORMAL) Lipid Panel, Standard (03/26/2016) Triglycerides 201(A) 40 - 160 mg/dL Cholesterol 168 0 - 200 mg/dL HDL Cholesterol 37 35 - 70 mg/dL LDL Cholesterol 75 mg/dL Blood Venous blood specimen / Unknown [facility] Provider LAB BLOOD ORDERABLES Lola l Result from Last 3 Months or Most Recently Relevant to Health Maintenance Insurance [facility] [place] [facility] PPO * Guarantor: Winifred Watkins Account Type Relation to Patient Date of Phone Billing Address Personal/Family Self [facility] [place] * Guarantor: Winifred Watkins Account Type Relation to Patient Date of Phone Billing Address Personal/Family Self [facility] [place] * Guarantor: Winifred Watkins Account Type Relation to Patient Date of Phone Billing Address Personal/Family Self [facility] [place] Care Teams Centrifugal Machine Tender Relationship Specialty Start Date End Date Little Reid DO [address] [place] [address] PCP - General Family Medicine 07/29/23
--- OUTSIDE RECORDS SUMMARY | 2025-01-12 14:25 | XMS_ITS | Encounter Summary ---
Author Organization [employer] Address [address] [facility] [address] 7t [place] [address] Care Team Providers Care Chamber Magistrate Name Role Phone Little Reid DO Primary Care Provider [phone] Encounter Details Date Type Department Care Team (Late st Contact Info) Description 12/31/2023 Orders Only [facility] MED[facility] [address] [place] [address] Little Reid DO [address] [place] [address] Social History Tobacco Use Types Packs/Day Years [...] Industry Job Start Date Job End Date [facility] [employer] Not on file Not on sayra e [...] on filedocumented in this encounter Care Teams Chamber Magistrate Relationship Specialty Start Date End Date Little Reid DO [address] [place] [id number] PCP - General Family Medicine 07/29/23 documented as of this encounter
== END 2025-01-12 15:30 | disposition home or self-care (01) ==
LOC: HO.HMCFM 14:07
PROVIDERS: PCP Nurse Practitioner Family; Visit Provider Nurse Practitioner Family
DX: R73.01 Impaired fasting glucose (principal); E78.1 Pure hyperglyceridemia; I10 Essential (primary) hypertension

== ENCOUNTER → 2025-01-12 14:07 | Outpatient (BNVA) | payer MEDICARE, SELFPAY | PROVIDERS: PCP Nurse Practitioner Family; Visit Provider Nurse Practitioner Family | DX: R73.01 Impaired fasting glucose (principal); E78.1 Pure hyperglyceridemia; I10 Essential (primary) hypertension; Z79.899 Other long term (current) drug therapy | CPT/HCPCS: 98966 ==

== ENCOUNTER 2025-03-19 10:30 | Outpatient (REF) | payer MEDICARE, SELFPAY ==
--- OUTSIDE RECORDS SUMMARY | 2025-03-19 11:21 | XMS_ITS | Clinical Summary ---
Author Organization [employer] Address [address] [facility] [address] [place] [address] Care Team Providers Care Board Operator Name Role Phone Little Reid DO Primary Care Provider Allergies No known active allergies Medications Multiple [...] & Plan (07/30/2023 5:05 PM EST): H/o [place] x 2 at 47 yo and 57 yo with three stents On ASA, Plavix, statin, BB, ARB Follows with Dr. Lopez at [facility] History of [...] descending (LAD) coronary artery 09/01/2022 07/30/2023 Immunizations Immunization Administration Dates Next Due INFLUENZA INJECTABLE QUADRIV [...] the past 12 months, has t he [employer], gas, oil or water company threatened to [...] Industry Job Start Date Job End Date [facility] [employer] Not on file Not on sayra e Not on file Last Filed Vital Signs Vital Sign Reading Time Taken Comments Blood Pressure 156/88 12/13/2023 3:19 PM EDT Pulse 60 12/13/2023 3:19 PM EDT Temperature 36.4 C (97.6 F) 12/13/2023 3:19 PM EDT Respiratory Rate - - Oxygen Saturation 96% [...] 2024 03/19/2022, 08/22/2021, 12/19/2020, Additional history exists Depression Screening 07/30/2024 07/30/2023, 07/30/20 23 SDOH Screening 07/30/2024 07/30/2023 Tobacco Screening 12/12/2024 12/13/2023 Influenza Vaccine (#1) 2025 , 06/27/2020, 08/21/2019 HIB Vaccines Aged Out No longer eligi [...] patient's age to complete this topic Meningococcal B Vaccine Aged Out No l onger eligible based on patient's age to complete [...] % Blood Venous blood specimen / Unknown [facility] Provider MD LAB BLOOD ORDERABLES Lola l Result * (ABNORMAL) Lipid Panel, Standard (03/26/2016) Triglycerides 201(A) 40 - 160 mg/dL Cholesterol 168 0 - 200 mg/dL HDL Cholesterol 37 35 - 70 mg/dL LDL Cholesterol 75 mg/dL Blood Venous blood specimen / Unknown [facility] Provider LAB BLOOD ORDERABLES Lola l Result from Last 3 Months or Most Recently Relevant to Health Maintenance Insurance [facility] PPO * Guarantor: Winifred Watkins Account Type Relation to Patient Date of Phone Billing Address Personal/Family Self [facility] * Guarantor: Winifred Watkins Account Type Relation to Patient Date of Phone Billing Address Personal/Family Self [facility] * Guarantor: Winifred Watkins Account Type Relation to Patient Date of Phone Billing Address Personal/[place] [address] Care Teams Board Operator Relationship Specialty Start Date End Date Little Reid DO [address] [place] [address] PCP - General Family Medicine 07/29/23
[2025-03-19 14:36] LABS: Cholesterol 130 mg/dL (<200); HDL Cholesterol 42 mg/dL (>40); Triglycerides 229 mg/dL (<150)
[2025-03-19 14:39] LABS: Appearance Urine Clear; Glucose Urine UA Negative (Negative); PH 6.5 (5.0-9.0); Specific Gravity - Urine 1.020 (1.005-1.025); UMIC TRIGGER UACC YES
[2025-03-19 14:52] LABS: UACC Culture Trigger YES
== END 2025-03-19 10:31 | disposition home or self-care (01) ==
LOC: HO.WFDLDS 10:30
PROVIDERS: Visit Provider Nurse Practitioner Family
DX: Z00.00 Encounter for general adult medical examination without abnormal findings (principal); E78.1 Pure hyperglyceridemia; R73.01 Impaired fasting glucose
CPT/HCPCS: 36415; 80061; 81001; 82947; 87086

== ENCOUNTER 2025-03-23 10:35 | Outpatient (AMB) | payer MEDICARE, SELFPAY ==
--- NOTE | 2025-03-23 10:39 | A.OFFPC_ITS ---
Vital Signs 03/23/25 10:44 03/23/25 11:00 Height 4 ft 11 in Weight 165 lb BMI 33.3 BP 150/75 H 126/84 Blood Pressure Location Rt brachial Lt brachial Position Sitting Sitting Respiration 16 Pulse 60 Pulse Source Pulse Oximeter Temp 98.0 F Temp Source Oral Pulse Oximetry (%) 97 Oxygen Delivery Method Room Air Intake Visit Reasons: 2 mos HTN, hypertriglyceridemia Intake Note: patient here for 2 month follow up on HTN and Hypertriglyceridema Software Test Engineer Required: No Is last menstrual period known: No Post menopausal: No Patient : No Allergies No Known Allergies Allergy (Verified 03/23/25 11:17) Medication List - Last Reconciled 03/23/25 by Millie Sarabia CNP albuterol sulfate 90 mcg/actuation 2 puffs inhalation Q4H PRN carvedilol 6.25 mg PO BID clopidogrel 75 mg PO DAILY losartan 25 mg PO BID rosuvastatin 10 mg PO DAILY 90 days Tobacco use date assessed: 03/23/25 Fall risk assessment: No Falls in past year Last assessed Fall Risk: 03/23/25 Dental Screening Dental Screen Date: 03/23/25 Did you have a dental visit in the last 12 months?: No Did you have a dental problem in the last 6 months where you did not have access to dental care?: No Was dental information given to patient?: No HPI HPI Comments History of Present Illness Details 63-year-old female presents for hyperten modesto and review of recent lab results. She admits to taking her medications as prescribed without adverse reactions. She notes that she has been making healthy lifestyle changes. She offers no complaints and denies acute symptoms at this time. [facility] Medical History (Updated 03/23/25 @ 14:18 by Millie Sarabia CNP) Murmur Shingles Arthritis High blood pressure COPD (chronic obstructive pulmonary disease) Surgical History History of heart artery stent H/O: Family History Father Alcohol abuse Substance abuse High blood pressure Cardiovascular disease Mother High blood pressure Brother High blood pressure High cholesterol Cardiovascular disease Sister High blood pressure High cholesterol Diabetes Social History Housing: House Patient Tobacco Use Status: Never used Tobacco e-Cigarette/Vaping Use: Never Used Second Hand Smoke Exposure: No Substance Use Type: Marijuana service: No Current occupational status: retired Current occupational exposures/hazards: No Cognitive needs: No Hearing needs: No Vision needs: Yes Questionnaire Thrive Questionnaire Date Thrive assessed: 12/20/24 I am a: Patient What is your living situation today?: I have a steady place to live Within the past 12 months, did the food you bought not last and you didn't have the money to get more?: Never true Within the past 12 months, did you worry whether your food would run out before you got money to buy more?: Never true Do you have trouble paying for medicines?: No Do you have trouble getting transportation to medical appointments?: No Do you have trouble paying your heating and electricity bill?: No Do you have trouble taking care of your child, family member or friend?: No Do you have trouble with day-to-day activities such as bathing, preparing meals, shopping, managing finances, etc.?: No Are you currently unemployed and looking for a job?: No Are you interested in more education?: No Please select the resources that you would like help with: None Currently or been in a relationship where the following occur: No concerns reported THRIVE Score: 0 HECTOR-7 AMB Questionnaire HECTOR-7 Date HECTOR - 7 assessed: 12/26/24 Source: Developed by Drs. Rene Narayanan, Emily Herbert, John Adorno and colleagues, with an educational stephanie from [employer]. Review of Systems Const Details: Const Denies chills, Denies fatigue, Denies fever(s), Denies headache(s) and Denies weakness ENT Denies dizziness and Denies headache(s) Card Denies chest pain, Denies lightheadedness, Denies dyspnea and Denies other (Palpitations) Resp Denies cough, Denies dyspnea, Denies wheezing and Denies other ( shortness of breath) GI Denies abdominal pain, Denies melena, Denies hematochezia, Denies change in bowel habits, Denies dyspepsia and Denies nausea Denies hematuria and Denies dysuria Musc Denies abnormal gait, Denies myalgias, Denies arthralgias, Denies numbness and Denies tingling Skin/Breast Denies rash, Denies unusual bruising and Denies wounds Neuro Denies abnormal gait, Denies dizziness, Denies headache(s), Denies memory loss, Denies numbness, Denies Sensory deficit (Neuro), Denies tingling and Denies weakness Psych Denies anxiety, Denies depression, Denies memory loss Endo Denies cold intolerance, Denies fatigue, Denies heat intolerance, Denies polydipsia and Denies polyuria Aller/Immun Denies wheezing Physical exam (Primary Care) Vital Signs: Last Vital Signs Temp 98.0 F 03/23/25 10:44 Pulse 60 03/23/25 10:44 Resp 16 03/23/25 10:44 BP 150/75 H 03/23/25 10:44 Pulse Ox 97 03/23/25 10:44 Oxygen Delivery Method Room Air 03/23/25 10:44 BMI result Body Mass Index 33.3 Tobacco/Smoking Status: Tobacco use Status Tobacco use date assessed 03/23/25 03/23/25 10:48 Patient Tobacco Use Status Never used Tobacco 03/23/25 10:42 e-Cigarette/Vaping Use Never Used 03/23/25 10:42 Thrive Assessment: Date of Thrive Assessment Date Thrive assessed 12/20/24 03/23/25 10:42 Currently or been in a relationship where the following occur: No concerns reported Const Other: General: no acute distress and well developed Nutritional Appearance: well nourished Orientation/consciousness: patient oriented x3 HENMT Head: Yes normocephalic and Yes atraumatic Eyes General: appearance normal, both eyes and all related structures Pupils: Equal, round and reactive pupils present EOM: EOMs intact bilaterally Resp Effort & Inspection: normal respiratory effort Auscultation: clear to auscultation bilaterally Cardio Rate: regular rate Rhythm: regular rhythm Heart sounds: S1 normal heart sound present, S2 normal heart sound present, no gallops, + murmurs and no rubs GI Palpation (GI): No Abdominal aortic bruit present, Soft to palpation, nontender, No hepatosplenomegaly present and No Rebound tenderness present Auscultation: normal bowel sounds General: Yes no CVA tenderness Back/Spine/Pelvis Back: no CVA tenderness Cervical Spine: cervical ROM normal and No Cervical spine tenderness Thoracic/Lumbar Spine: thoraco-lumbar ROM normal, No pain with thoraco-lumbar ROM, No thoracic spinal tenderness and No lumbar spinal tenderness Extrem General: Yes normal to inspection, No edema and No calf tenderness Skin General: warm and dry. Normal skin color. Normal skin turgor Neuro General: patient oriented x3, gait normal and no focal neuro deficit Cranial nerves: Yes Equal, round and reactive pupils present Cognition (Neuro): normal cognition Gait exam (Neuro): Normal gait present Sensory Exam: No Sensory deficit (Neuro) Psych Appearance: grossly normal Affect: normal affect Attitude: cooperative Thought process: Normal thought process present Results AMB Hemoglobin A1c AMB Hemoglobin A1c 5.8 % Last Edit by Magnolia Renteria MA on 03/23/25 12:13 Results Reviewed Results Reviewed: Laboratory Last Values Hgb A1c (Clinic) 5.8 % (4.0-6.0) 03/23/25 11:27 Coding Level of Care Code Est Pt Level 4 (20006) Diagnoses High blood pressure I10 Hypertriglyceridemia E78.1 Prediabetes R73.03 Assessment & Plan Assessment & Plan (1) High blood pressure: Code(s): I10 - Essential (primary) hypertension Category: Medical Plan: Resting blood pressure is 126/84, slightly above goal of less than 130/80. Continue current treatment regimen. Low-sodium diet and routine exercise encouraged. Follow-up in 3 months or sooner with symptoms or concerns. Verbalized understanding and agreed with the plan. (2) Hypertriglyceridemia: Code(s): E78.1 - Pure hyperglyceridemia Category: Medical Plan: Recent triglyceride level is elevated, 229, previous level was 196. Gemfibrozil 600 mg twice daily ordered; advised to take as prescribed. Instructed on the risks, benefits, and potential adverse reactions of the medication. Advised to limit foods high in saturated fat and avoid foods high in trans fat. Routine exercise encouraged. Will recheck lipid panel levels in 6 weeks. Verbalized understanding and agreed with the plan. (3) Prediabetes: Code(s): R73.03 - Prediabetes Category: Medical Plan: Recent fasting glucose is 112, previous level was 113. A1c today is 5.8%. Routine exercise and healthy diet, including low carbs encouraged. Will monitor A1c in the next 6-12 months. Verbalized understanding and agreed with the plan. Plan Recent fasting glucose is elevated, 112, previous level was 113. Orders: Orders AMB Hemoglobin A1c Today Z13.9 - Encounter for screening, unspecified Lipid Panel 6 Weeks I10 - Essential (primary) hypertension Medications: New gemfibrozil 600 mg PO BID 60 tabs 3RF 30 days
[2025-03-23 10:44] VITALS: BP 150/75; PULSE 60; RESP 16; TEMP 36.7; O2SAT 97; BMI 33.3
[2025-03-23 11:00] VITALS: BP 126/84
--- OUTSIDE RECORDS SUMMARY | 2025-03-23 11:10 | XMS_ITS | Clinical Summary ---
Author Organization [employer] Address [address] [facility] [address]t [place] [address] Care Team Providers Care Graining Machine Operator Name Role Phone Little Reid DO Primary Care Provider [phone] Allergies No known active allergies Medications Multiple [...] & Plan (07/30/2023 5:05 PM EST): H/o [place] x 2 at 47 yo and 57 yo with three stents On ASA, Plavix, statin, BB, ARB Follows with Dr. Lopez at [facility] [place] History of coronary artery stent [...] the past 12 months, has t he [employer], gas, oil or water company threatened to [...] Industry Job Start Date Job End Date [employer] Not on file Not on [...] % Blood Venous blood specimen / Unknown [facility] Provider MD LAB BLOOD ORDERABLES Lola l Result * (ABNORMAL) Lipid Panel, Standard (03/26/2016) Triglycerides 201(A) 40 - 160 mg/dL Cholesterol 168 0 - 200 mg/dL HDL Cholesterol 37 35 - 70 mg/dL LDL Cholesterol 75 mg/dL Blood Venous blood specimen / Unknown [facility] Provider LAB BLOOD ORDERABLES Lola l Result from Last 3 Months or Most Recently Relevant to Health Maintenance Insurance [facility] [place] [facility] PPO * Guarantor: Winifred Watkins Account Type Relation to Patient Date of Phone Billing Address Personal/Family Self [facility] [place] * Guarantor: Winifred Watkins Account Type Relation to Patient Date of Phone Billing Address Personal/Family Self [facility] [place] * Guarantor: Winifred Watkins Account Type Relation to Patient Date of Phone Billing Address Personal/Family [place] [address] Care Teams Graining Machine Operator Relationship Specialty Start Date End Date Little Reid DO [address] [place] [address] PCP - General Family Medicine 07/29/23
== END 2025-03-23 12:15 | disposition home or self-care (01) ==
LOC: HO.HMCFM 10:36
PROVIDERS: PCP Nurse Practitioner Family; Visit Provider Nurse Practitioner Family
DX: I10 Essential (primary) hypertension (principal); E78.1 Pure hyperglyceridemia; R73.03 Prediabetes; Z13.9 Encounter for screening, unspecified

== ENCOUNTER → 2025-03-23 10:35 | Outpatient (BNVA) | payer MEDICARE, SELFPAY | PROVIDERS: PCP Nurse Practitioner Family; Visit Provider Nurse Practitioner Family | DX: I10 Essential (primary) hypertension (principal); E78.1 Pure hyperglyceridemia; R73.03 Prediabetes | CPT/HCPCS: 83036; 99212 ==

== ENCOUNTER 2025-05-04 13:22 | Outpatient (REF) | payer MEDICARE, SELFPAY ==
--- OUTSIDE RECORDS SUMMARY | 2025-05-04 13:25 | XMS_ITS | Clinical Summary ---
Author Organization [employer] Address [address] [facility] [address] [place] [address] Care Team Providers Care Insulation Hoseman Name Role Phone Little Reid DO Primary Care Provider [phone] Allergies No known active allergies Medications Multiple [...] & Plan (07/30/2023 5:05 PM EST): H/o ID x 2 at 47 yo and 57 yo with three stents On ASA, Plavix, statin, BB, ARB Follows with [facility]. Lopez at [facility] History of coronary artery stent [...] the past 12 months, has t he [employer], gas, oil or water company threatened to [...] Industry Job Start Date Job End Date [facility] [employer] Not on file Not on [...] % Blood Venous blood specimen / Unknown [facility] Provider MD LAB BLOOD ORDERABLES Lola l Result * (ABNORMAL) Lipid Panel, Standard (03/26/2016) Triglycerides 201(A) 40 - 160 mg/dL Cholesterol 168 0 - 200 mg/dL HDL Cholesterol 37 35 - 70 mg/dL LDL Cholesterol 75 mg/dL Blood Venous blood specimen / Unknown [facility] Provider LAB BLOOD ORDERABLES Lola l Result from Last 3 Months or Most Recently Relevant to Health Maintenance Insurance [facility] [place] [facility] PPO * Guarantor: Winifred Watkins Account Type Relation to Patient Date of Phone Billing Address Personal/Family Self [facility] [place] * Guarantor: Winifred Watkins Account Type Relation to Patient Date of Phone Billing Address Personal/Family Self [facility] [place] * Guarantor: Winifred Watkins Account Type Relation to Patient Date of Phone Billing Address Personal/Family [place] [address] Care Teams Insulation Hoseman Relationship Specialty Start Date End Date Little Reid DO [address] [place] [address] PCP - General Family Medicine 07/29/23
[2025-05-04 16:26] LABS: Cholesterol 151 mg/dL (<200); HDL Cholesterol 49 mg/dL (>40); Triglycerides 245 mg/dL (<150)
== END 2025-05-04 13:23 | disposition home or self-care (01) ==
LOC: HO.WFDLDS 13:22
PROVIDERS: Visit Provider Nurse Practitioner Family
DX: I10 Essential (primary) hypertension (principal)
CPT/HCPCS: 36415; 80061

== ENCOUNTER 2025-06-26 13:10 | Outpatient (AMB) | payer MEDICARE, SELFPAY ==
--- NOTE | 2025-06-26 13:11 | A.OFFPC_ITS ---
Vital Signs 06/26/25 13:15 06/26/25 13:43 Height 4 ft 11 in Weight 165 lb 4 oz BMI 33.4 BP 176/83 H 164/80 H Blood Pressure Location Rt brachial Lt brachial Position Sitting Sitting Respiration 16 Pulse 71 Pulse Source Pulse Oximeter Temp 97.8 F Temp Source Oral Pulse Oximetry (%) 98 Oxygen Delivery Method Room Air Intake Visit Reasons: 3 mos HTN Intake Note: patient here for 3 month follow up on HTN Professional Services Manager Required: No Is last menstrual period known: No Post menopausal: No Patient : No Allergies No Known Allergies Allergy (Verified 06/26/25 13:37) Medication List - Last Reconciled 06/26/25 by Millie Sarabia CNP albuterol sulfate 90 mcg/actuation 2 puffs inhalation Q4H PRN aspirin (Adult Low Dose Aspirin) 81 mg PO DAILY carvedilol 6.25 mg PO BID clopidogrel 75 mg PO DAILY losartan 25 mg PO BID rosuvastatin 10 mg PO DAILY 90 days Tobacco use date assessed: 06/26/25 Fall risk assessment: No Falls in past year Last assessed Fall Risk: 06/26/25 Dental Screening Dental Screen Date: 06/26/25 Did you have a dental visit in the last 12 months?: No Did you have a dental problem in the last 6 months where you did not have access to dental care?: No Was dental information given to patient?: No (pt has dentures) HPI HPI Comments History of Present Illness Details 64-year-old female presents for hyperten [place] and hypertriglyceridemia follow-up She admits to taking her medications as prescribed without adverse reactions. She took gemfibrozil for one month and stopped taking it due to adverse reactions for nausea and lethargy; her symptoms completely resolved after she stopped the medication. She does not want to start medication treatment at this time and want to start being consistent with diet and exercise. She notes that she has been making healthy lifestyle changes. She notes that she has has white-coat syndrome and that her home blood pressure average between 122-126/76-78. She offers no complaints and denies acute symptoms at this time. [facility] Medical History (Updated 03/23/25 @ 14:18 by Millie Sarabia CNP) Murmur Shingles Arthritis High blood pressure COPD (chronic obstructive pulmonary disease) Surgical History History of heart artery stent H/O: Family History Father Alcohol abuse Substance abuse High blood pressure Cardiovascular disease Mother High blood pressure Brother High blood pressure High cholesterol Cardiovascular disease Sister High blood pressure High cholesterol Diabetes Social History Housing: House Patient Tobacco Use Status: Never used Tobacco e-Cigarette/Vaping Use: Never Used Second Hand Smoke Exposure: No Substance Use Type: Marijuana service: No Current occupational status: retired Current occupational exposures/hazards: No Cognitive needs: No Hearing needs: No Vision needs: Yes Questionnaire Thrive Questionnaire Date Thrive assessed: 12/20/24 I am a: Patient What is your living situation today?: I have a steady place to live Within the past 12 months, did the food you bought not last and you didn't have the money to get more?: Never true Within the past 12 months, did you worry whether your food would run out before you got money to buy more?: Never true Do you have trouble paying for medicines?: No Do you have trouble getting transportation to medical appointments?: No Do you have trouble paying your heating and electricity bill?: No Do you have trouble taking care of your child, family member or friend?: No Do you have trouble with day-to-day activities such as bathing, preparing meals, shopping, managing finances, etc.?: No Are you currently unemployed and looking for a job?: No Are you interested in more education?: No Please select the resources that you would like help with: None Currently or been in a relationship where the following occur: No concerns reported THRIVE Score: 0 HECTOR-7 AMB Questionnaire HECTOR-7 Date HECTOR - 7 assessed: 12/26/24 Source: Developed by Drs. Rene Narayanan, Emily Herbert, John Adorno and colleagues, with an educational stephanie from [employer]. Review of Systems Const Details: Const Denies chills, Denies fatigue, Denies fever(s), Denies headache(s) and Denies weakness ENT Denies dizziness and Denies headache(s) Card Denies chest pain, Denies lightheadedness, Denies dyspnea and Denies other (Palpitations) Resp Denies cough, Denies dyspnea, Denies wheezing and Denies other ( shortness of breath) GI Denies abdominal pain, Denies melena, Denies hematochezia, Denies change in bowel habits, Denies dyspepsia and Denies nausea Denies hematuria and Denies dysuria Musc Denies abnormal gait, Denies myalgias, Denies arthralgias, Denies numbness and Denies tingling Skin/Breast Denies rash, Denies unusual bruising and Denies wounds Neuro Denies abnormal gait, Denies dizziness, Denies headache(s), Denies memory loss, Denies numbness, Denies Sensory deficit (Neuro), Denies tingling and Denies weakness Psych Denies anxiety, Denies depression, Denies memory loss Endo Denies cold intolerance, Denies fatigue, Denies heat intolerance, Denies polydipsia and Denies polyuria Aller/Immun Denies wheezing Physical exam (Primary Care) Vital Signs: Last Vital Signs Temp 97.8 F 06/26/25 13:15 Pulse 71 06/26/25 13:15 Resp 16 06/26/25 13:15 BP 176/83 H 06/26/25 13:15 Pulse Ox 98 06/26/25 13:15 Oxygen Delivery Method Room Air 06/26/25 13:15 BMI result Body Mass Index 33.4 Tobacco/Smoking Status: Tobacco use Status Tobacco use date assessed 06/26/25 06/26/25 13:17 Patient Tobacco Use Status Never used Tobacco 06/26/25 13:17 e-Cigarette/Vaping Use Never Used 06/26/25 13:17 Thrive Assessment: Date of Thrive Assessment Date Thrive assessed 12/20/24 06/26/25 13:17 Currently or been in a relationship where the following occur: No concerns reported Const Other: General: no acute distress and well developed Nutritional Appearance: well nourished Orientation/consciousness: patient oriented x3 HENMT Head: Yes normocephalic and Yes atraumatic Eyes General: appearance normal, both eyes and all related structures Pupils: Equal, round and reactive pupils present EOM: EOMs intact bilaterally Resp Effort & Inspection: normal respiratory effort Auscultation: clear to auscultation bilaterally Cardio Rate: regular rate Rhythm: regular rhythm Heart sounds: S1 normal heart sound present, S2 normal heart sound present, no gallops, no murmurs and no rubs GI Palpation (GI): No Abdominal aortic bruit present, Soft to palpation, nontender, No hepatosplenomegaly present and No Rebound tenderness present Auscultation: normal bowel sounds General: Yes no CVA tenderness Back/Spine/Pelvis Back: no CVA tenderness Cervical Spine: cervical ROM normal and No Cervical spine tenderness Thoracic/Lumbar Spine: thoraco-lumbar ROM normal, No pain with thoraco-lumbar ROM, No thoracic spinal tenderness and No lumbar spinal tenderness Extrem General: Yes normal to inspection, No edema and No calf tenderness Skin General: warm and dry. Normal skin color. Normal skin turgor Neuro General: patient oriented x3, gait normal and no focal neuro deficit Cranial nerves: Yes Equal, round and reactive pupils present Cognition (Neuro): normal cognition Gait exam (Neuro): Normal gait present Sensory Exam: No Sensory deficit (Neuro) Psych Appearance: grossly normal Affect: normal affect Attitude: cooperative Thought process: Normal thought process present Coding Level of Care Code Est Pt Level 3 (65391) Diagnoses High blood pressure I10 Hypertriglyceridemia E78.1 Assessment & Plan Assessment & Plan (1) High blood pressure: Code(s): I10 - Essential (primary) hypertension Category: Medical Plan: Resting blood pressure is 164/80, above goal of less than 130/80. She notes that she has has white-coat syndrome and that her home blood pressure average between 122-126/76-78. Declines medication changes at this time and notes she will continue to monitor her blood pressure. Continue current treatment regimen. Reports blood pressure consistently above 130/80. Follow-up in 2 months or sooner with symptoms or concerns. Verbalized understanding and agreed with the plan. (2) Hypertriglyceridemia: Code(s): E78.1 - Pure hyperglyceridemia Category: Medical Plan: Recent triglycerides level is 245, previous level was 229. She experienced adverse reaction to gemfibrozil. Declines medication treatment at this time. She wants to start been consistent with diet and exercise. Advised to limit foods high in saturated fat and avoid foods high in trans fat. Routine exercise encouraged. Fast for 10-12 hours, may drink water, and performed lipid panel blood work a few days before next visit. Follow-up in 2 months. Return sooner with symptoms or concerns. Verbalized understanding and agreed with the plan. Orders: Orders Lipid Panel 2 Months E78.1 - Pure hyperglyceridemia
[2025-06-26 13:15] VITALS: BP 176/83; PULSE 71; RESP 16; TEMP 36.6; O2SAT 98; BMI 33.4
[2025-06-26 13:43] VITALS: BP 164/80
--- OUTSIDE RECORDS SUMMARY | 2025-06-26 16:00 | XMS_ITS | Encounter Summary ---
Author Organization [employer] Address [address] [place] [address] Care Team Providers Care Model And Pattern Supervisor Name Role Phone Little Reid DO Primary Care Provider [phone] Encounter Details Date Type Department Care Team (Late st Contact Info) Description 08/04/2023 Orders Only [facility] MEDICAL [address] [place] [address] ProviderSanjay MD Social History Tobacco Use Types Packs/Day Years Used Date Smoking Tobacco: Former Cigarettes Alcohol Use Standard Drinks/Week Comments Never 0 (1 standard drink = 0.6 oz pur e alcohol) Housing Stability Answer Date Recorded What is your housing situation today? I have mary jer 07/30/[address] you li [...] on filedocumented in this encounter Care Teams Model And Pattern Supervisor Relationship Specialty Start Date End Date Little Reid DO [address] [place] [id number] PCP - General Family Medicine 07/29/23 documented as of this encounter
--- OUTSIDE RECORDS SUMMARY | 2025-06-26 16:00 | XMS_ITS | Encounter Summary ---
Author Organization [employer] Address [address] [place] [address] Care Team Providers Care Fertilizer Mixer Name Role Phone Little Reid DO Primary Care Provider [phone] Encounter Details Date Type Department Care Team (Late st Contact Info) Description 12/31/2023 Orders Only [facility][1] MEDICAL [address] [place] [address] Little Reid DO [address] [place] [address] Social History Tobacco Use Types Packs/Day Years [...] Industry Job Start Date Job End Date [employer] Not on file Not on sayra [...] on filedocumented in this encounter Care Teams Fertilizer Mixer Relationship Specialty Start Date End Date Little Reid DO [address] [place] [id number] PCP - General Family Medicine 07/29/23 documented as of this encounter
--- OUTSIDE RECORDS SUMMARY | 2025-06-26 16:00 | XMS_ITS | Encounter Summary ---
Author Organization [employer] Address [address] [facility] [address] [place] [address] Care Team Providers Care Swimmer Name Role Phone Little Reid DO Primary Care Provider [phone] Encounter Details Date Type Department Care Team (Late st Contact Info) Description 08/20/2023 Orders Only [facility] [address] [place] [address] Little Reid DO [address] [place] [address] Social History Tobacco Use Types Packs/Day Years [...] on filedocumented in this encounter Care Teams Swimmer Relationship Specialty Start Date End Date Little Reid DO [address] [place] [id number] PCP - General Family Medicine 07/29/23 documented as of this encounter
--- OUTSIDE RECORDS SUMMARY | 2025-06-26 16:00 | XMS_ITS | Clinical Summary ---
Author Organization [employer] Address [address] [facility] [address] [place] [address] Care Team Providers Care Mandrel Press Hand Name Role Phone Little Reid DO Primary Care Provider [phone] Allergies No known active allergies Medications Multiple [...] obstructive pulmonary disease, unspecified COPD type (CMS/HCC) (HCC) INHALE 2 PUFFS INTO THE LUNGS EVERY [...] & Plan (07/30/2023 5:05 PM EST): H/o MS x 2 at 47 yo and 57 yo with three stents On ASA, Plavix, statin, BB, ARB Follows with Dr. Lopez at [facility] History of coronary artery stent [...] the past 12 months, has t he [employer], gas, oil or water company threatened to [...] Industry Job Start Date Job End Date [employer] Not on file Not on [...] 1-dose series) 2019 Lipid Panel 03/26/2021 03/26/2016 Depression Screening 07/30/2024 07/30/2023, 07/30/20 23 SDOH Screening 07/30/2024 07/30/2023 Tobacco Screening 12/12/2024 12/13/2023 COVID-19 Vaccine ( season) 2025 03/19/2022, 08/22/2021, 12/19/2020, Additional history exists Influenza Vaccine (#1) 2025 , 06/27/2020, 08/21/2019 [...] % Blood Venous blood specimen / Unknown [facility] Provider MD LAB BLOOD ORDERABLES Lola l Result * (ABNORMAL) Lipid Panel, Standard (03/26/2016) Triglycerides 201(A) 40 - 160 mg/dL Cholesterol 168 0 - 200 mg/dL HDL Cholesterol 37 35 - 70 mg/dL LDL Cholesterol 75 mg/dL Blood Venous blood specimen / Unknown [facility] Provider LAB BLOOD ORDERABLES Lola l Result from Last 3 Months or Most Recently Relevant to Health Maintenance Insurance [place], [place] [facility] PPO * Guarantor: Winifred Watkins Account Type Relation to Patient Date of Phone Billing Address Personal/Family Self [facility] [place] * Guarantor: Winifred Watkins Account Type Relation to Patient Date of Phone Billing Address Personal/Family Self [facility] [place] Care Teams Mandrel Press Hand Relationship Specialty Start Date End Date Little Reid DO [address] [place] [address] PCP - General Family Medicine 07/29/23
== END 2025-06-26 13:58 | disposition home or self-care (01) ==
LOC: HO.HMCFM 13:11
PROVIDERS: PCP Nurse Practitioner Family; Visit Provider Nurse Practitioner Family
DX: I10 Essential (primary) hypertension (principal); E78.1 Pure hyperglyceridemia

== ENCOUNTER → 2025-06-26 13:10 | Outpatient (BNVA) | payer MEDICARE, SELFPAY | PROVIDERS: PCP Nurse Practitioner Family; Visit Provider Nurse Practitioner Family | DX: I10 Essential (primary) hypertension (principal); E78.1 Pure hyperglyceridemia; Z79.899 Other long term (current) drug therapy | CPT/HCPCS: 99212 ==

== ENCOUNTER 2025-08-20 08:35 | Outpatient (REF) | payer MEDICARE, SELFPAY ==
[2025-08-20 11:30] LABS: MANUAL DIFF FLAG NO
[2025-08-20 11:50] LABS: Hematocrit 43.4 % (37.0-47.0); Hemoglobin 14.0 g/dl (12.0-16.0); Imm Gran Abs Auto 0.03 X10*3/uL (0.00-0.03); Imm Gran Pct Auto 0.3 % (0.0-0.4); Lymphocytes Absolute Auto 1.6 X10*3/uL (1.2-4.9); Mean Corpuscular HGB Conc 32.3 g/dl (31.0-35.0); Mean Corpuscular Hemoglobin 26.1 pg (27.0-33.0); Mean Corpuscular Volume 80.8 fL (80.0-98.0); NRBC Abs Auto 0.000 X10*3/uL (0.0-0.012); NRBC Pct Auto 0.0 /100WBC (0.0-0.2); Platelet Count 271 X10*3/uL (160-400); Red Blood Count 5.37 X10*6/uL (4.20-5.50); White Blood Count 8.7 X10*3/uL (4.8-10.8)
[2025-08-20 12:19] LABS: Anion Gap 9 (12-20); Blood Urea Nitrogen 17 mg/dL (9-16); Calcium 9.7 mg/dL (8.4-10.2); Carbon Dioxide 28 mmol/L (22-29); Chloride 107 mmol/L (96-108); Cholesterol 132 mg/dL (<200); Estimated Glomerular Filt Rate > 60; HDL Cholesterol 48 mg/dL (>40); Potassium 4.4 mmol/L (3.3-5.1); Sodium 140 mmol/L (135-145); Triglycerides 153 mg/dL (<150)
== END 2025-08-20 08:36 | disposition home or self-care (01) ==
LOC: HO.WFDLDS 08:35
PROVIDERS: PCP Nurse Practitioner Family; Visit Provider Nurse Practitioner Family
DX: Z01.818 Encounter for other preprocedural examination (principal); E78.1 Pure hyperglyceridemia
CPT/HCPCS: 36415; 80048; 80061; 85025; 93005; 99212

== ENCOUNTER 2025-08-20 08:35 | Outpatient (AMB) | payer MEDICARE, SELFPAY ==
--- NOTE | 2025-08-20 08:37 | A.OFFPC_ITS ---
Vital Signs 08/20/25 08:41 08/20/25 09:06 Height 4 ft 11 in Weight 165 lb 8 oz BMI 33.4 BP 169/75 H 160/80 H Blood Pressure Location Rt brachial Rt brachial Position Sitting Sitting Respiration 16 Pulse 68 Pulse Source Pulse Oximeter Temp 97.6 F Temp Source Oral Pulse Oximetry (%) 97 Oxygen Delivery Method Room Air Intake Visit Reasons: Pre-Op cataract surgery /08/27 Intake Note: patient here for pre-op cataract surgery Dental Treatment Coordinator Required: No Is last menstrual period known: No Post menopausal: No Patient : No Allergies No Known Allergies Allergy (Verified 08/20/25 08:47) Medication List - Last Reconciled 08/20/25 by Mlilie Sarabia CNP albuterol sulfate 90 mcg/actuation 2 puffs inhalation Q4H PRN aspirin (Adult Low Dose Aspirin) 81 mg PO DAILY carvedilol 6.25 mg PO BID clopidogrel 75 mg PO DAILY losartan 25 mg PO BID rosuvastatin 10 mg PO DAILY 90 days Tobacco use date assessed: 08/20/25 Fall risk assessment: No Falls in past year Last assessed Fall Risk: 08/20/25 Dental Screening Dental Screen Date: 08/20/25 Did you have a dental visit in the last 12 months?: No Did you have a dental problem in the last 6 months where you did not have access to dental care?: No Was dental information given to patient?: Patient has dentist HPI HPI Comments History of Present Illness Details 64-year-old female presents for preop ex am for cataract surgery. She notes that she is scheduled to have surgery of the right eye on 08/27/2025. She admits to taking her medications as prescribed without adverse reactions. She notes that she has been making healthy lifestyle choices. She monitors her blood pressure at home twice daily and usually in 120s/70s. She reports history of white coat syndrome. She offers no complaints and denies acute symptoms at this time. [facility] Medical History (Updated 08/20/25 @ 08:44 by Millie Sarabia CNP) Murmur Shingles Arthritis High blood pressure COPD (chronic obstructive pulmonary disease) Surgical History History of heart artery stent H/O: Family History Father Alcohol abuse Substance abuse High blood pressure Cardiovascular disease Mother High blood pressure Brother High blood pressure High cholesterol Cardiovascular disease Sister High blood pressure High cholesterol Diabetes Social History Housing: House Patient Tobacco Use Status: Never used Tobacco e-Cigarette/Vaping Use: Never Used Second Hand Smoke Exposure: No Substance Use Type: Marijuana service: No Current occupational status: retired Current occupational exposures/hazards: No Cognitive needs: No Hearing needs: No Vision needs: Yes Questionnaire Thrive Questionnaire Date Thrive assessed: 12/20/24 I am a: Patient What is your living situation today?: I have a steady place to live Within the past 12 months, did the food you bought not last and you didn't have the money to get more?: Never true Within the past 12 months, did you worry whether your food would run out before you got money to buy more?: Never true Do you have trouble paying for medicines?: No Do you have trouble getting transportation to medical appointments?: No Do you have trouble paying your heating and electricity bill?: No Do you have trouble taking care of your child, family member or friend?: No Do you have trouble with day-to-day activities such as bathing, preparing meals, shopping, managing finances, etc.?: No Are you currently unemployed and looking for a job?: No Are you interested in more education?: No Please select the resources that you would like help with: None Currently or been in a relationship where the following occur: No concerns reported THRIVE Score: 0 HECTOR-7 AMB Questionnaire HECTOR-7 Date HECTOR - 7 assessed: 12/26/24 Source: Developed by Drs. Rene Narayanan, Emily Herbert, John Adorno and colleagues, with an educational stephanie from [employer]. Review of Systems Const Details: Const Denies chills, Denies fatigue, Denies fever(s), Denies headache(s) and Denies weakness ENT Denies dizziness and Denies headache(s) Card Denies chest pain, Denies lightheadedness, Denies dyspnea and Denies other (Palpitations) Resp Denies cough, Denies dyspnea, Denies wheezing and Denies other ( shortness of breath) GI Denies abdominal pain, Denies melena, Denies hematochezia, Denies change in bowel habits, Denies dyspepsia and Denies nausea Denies hematuria and Denies dysuria Musc Denies abnormal gait, Denies myalgias, Denies arthralgias, Denies numbness and Denies tingling Skin/Breast Denies rash, Denies unusual bruising and Denies wounds Neuro Denies abnormal gait, Denies dizziness, Denies headache(s), Denies memory loss, Denies numbness, Denies Sensory deficit (Neuro), Denies tingling and Denies weakness Psych Denies anxiety, Denies depression, Denies memory loss Endo Denies cold intolerance, Denies fatigue, Denies heat intolerance, Denies polydipsia and Denies polyuria Aller/Immun Denies wheezing Physical exam (Primary Care) Vital Signs: Last Vital Signs Temp 97.6 F 08/20/25 08:41 Pulse 68 08/20/25 08:41 Resp 16 08/20/25 08:41 BP 160/80 H 08/20/25 09:06 Pulse Ox 97 08/20/25 08:41 Oxygen Delivery Method Room Air 08/20/25 08:41 BMI result Body Mass Index 33.4 Tobacco/Smoking Status: Tobacco use Status Tobacco use date assessed 08/20/25 08/20/25 08:44 Patient Tobacco Use Status Never used Tobacco 08/20/25 08:40 e-Cigarette/Vaping Use Never Used 08/20/25 08:40 Thrive Assessment: Date of Thrive Assessment Date Thrive assessed 12/20/24 08/20/25 08:40 Currently or been in a relationship where the following occur: No concerns reported Const Other: General: no acute distress and well developed Nutritional Appearance: well nourished Orientation/consciousness: patient oriented x3 HENMT Head: Yes normocephalic and Yes atraumatic Eyes General: appearance normal, both eyes and all related structures Pupils: Equal, round and reactive pupils present EOM: EOMs intact bilaterally Resp Effort & Inspection: normal respiratory effort Auscultation: clear to auscultation bilaterally Cardio Rate: regular rate Rhythm: regular rhythm Heart sounds: S1 normal heart sound present, S2 normal heart sound present, no gallops, no murmurs and no rubs GI Palpation (GI): No Abdominal aortic bruit present, Soft to palpation, nontender, No hepatosplenomegaly present and No Rebound tenderness present Auscultation: normal bowel sounds General: Yes no CVA tenderness Back/Spine/Pelvis Back: no CVA tenderness Cervical Spine: cervical ROM normal and No Cervical spine tenderness Thoracic/Lumbar Spine: thoraco-lumbar ROM normal, No pain with thoraco-lumbar ROM, No thoracic spinal tenderness and No lumbar spinal tenderness Extrem General: Yes normal to inspection, No edema and No calf tenderness Skin General: warm and dry. Normal skin color. Normal skin turgor Lesions: no lesions Rashes: no rashes Trauma: no lacerations or abrasions Wounds: no wounds Nails: normal Neuro General: patient oriented x3, gait normal and no focal neuro deficit Cranial nerves: Yes Equal, round and reactive pupils present Cognition (Neuro): normal cognition Gait exam (Neuro): Normal gait present Sensory Exam: No Sensory deficit (Neuro) Psych Appearance: grossly normal Affect: normal affect Attitude: cooperative Thought process: Normal thought process present Office Procedures EKG Details: Normal sinus rhythm with Inverted T-wave at V5 and V6. [id number], Complete Coding Level of Care Code Est Pt Level 4 (63717) Diagnoses Preop examination Z01.81 CPT Codes EKG - CPT: 10958-[id number], Complete ([id number]) Assessment & Plan Assessment & Plan (1) Preop examination: Code(s): Z01.818 - Encounter for other preprocedural examination Category: Medical Plan: Resting blood pressure is 160/80, above goal of less than 130/80. Reports white coat syndrome and states that her home blood pressure is usually 120s/70s. Declines medication changes at this time and prefers for her rehabilitation therapy aide to make changes. EKG in the office today revealed normal sinus rhythm with inverted T-wave at leads V5 and V6, possibly indicate ischemia. Will check CBC and kidney function. Encouraged to follow-up with her rehabilitation therapy aide for further cardiac workup and management of her hypertension. Normal physical exam. Advised to follow-up with cardiology for further workup/preop clearance. Orders: Orders Basic Metabolic Panel Today Z01.818 - Encounter for other preprocedural examination Complete Blood Count Auto Diff Today Z01.818 - Encounter for other preprocedural examination AMB EKG-In Office Today Z01.818 - Encounter for other preprocedural examination
[2025-08-20 08:41] VITALS: BP 169/75; PULSE 68; RESP 16; TEMP 36.4; O2SAT 97; BMI 33.4
[2025-08-20 09:06] VITALS: BP 160/80
== END 2025-08-20 09:38 | disposition home or self-care (01) ==
LOC: HO.HMCFM 08:36
PROVIDERS: PCP Nurse Practitioner Family; Visit Provider Nurse Practitioner Family
DX: Z01.818 Encounter for other preprocedural examination (principal)